=== PATIENT | male | born 1940 | race Caucasian/White ===

== ENCOUNTER 2022-05-08 11:03 | Emergency (ER) | payer MEDICARE, OTHER ==
[~2022-05-08] VITALS: Ht 182.9 cm; Wt 97.7 kg
[2022-05-08] VITALS (8 sets, daily range): BP systolic 138–154; BP diastolic 53–70
[~2022-05-08 11:03] MED LIST: BACLOFEN10 MG PO; BENAZEPRIL10 MG PO; METFORMIN500 MG PO; METOPROL TAR25 MG PO; SIMVASTATIN40 MG PO; ZOLPIDEM10 M1 PO
[2022-05-08 11:58] LABS: HEMATOCRIT 39.6 % (39.0-50.0); HEMOGLOBIN 13.8 g/dl (14.0-18.0); IMMATURE GRANULOCYTES 0.1 % (0.0-5.0); MEAN CELL VOLUME 89.2 fL CALC (80.0-100.0); MEAN CORPUSCULAR HGB 31.1 pG CALC (26.0-32.0); MEAN CORPUSCULAR HGB CONC 34.8 g/dL CAL (32.0-36.0); NEUT# 4.49 thou/uL (1.82-7.42); RED BLOOD COUNT 4.44 mill/uL (4.70-6.10); RED CELL DISTRI WIDTH 12.8 % (11.5-15.5)
[2022-05-08 12:07] LABS: ALBUMIN 4.1 g/dL (3.2-5.0); ALKALINE PHOSPHATASE 54 u/l (38-126); BILIRUBIN, TOTAL 0.8 mg/dL (0.0-1.4); BUN 19 mg/dL (8-23); BUN/CREATININE RATIO 22 (12-20 (CALC)); CARBON DIOXIDE 27 mmol/l (22-30); CHLORIDE 99 mmol/l (95-108); CREATININE 0.9 mg/dL (0.7-1.3); GFR FOR AFR.AMER. > 60 ML/MIN (>=60 (CALC)); GFR OTHER RACES > 60 ML/MIN (>=60 (CALC)); POTASSIUM 3.9 mmol/l (3.5-5.1); SGOT/AST 28 u/l (19-48); TOTAL PROTEIN 6.4 g/dL (6.3-8.2)
[2022-05-08 12:08] LABS: ANION GAP 15 (6-22 (CALC)); SODIUM 137 mmol/l (137-146)
[2022-05-08 12:19] LABS: MYOGLOBIN 53 ng/mL (0 - 121)
[2022-05-08 12:41] LABS: URINE BILIRUBIN - DIPSTICK NEGATIVE (NEGATIVE); URINE BLOOD DIPSTICK NEGATIVE (NEGATIVE); URINE COLOR YELLOW; URINE GLUCOSE - DIPSTICK NEGATIVE (NEGATIVE); URINE KETONE NEGATIVE (NEGATIVE); URINE LEUK ESTERASE NEGATIVE (NEGATIVE); URINE PH 7.5 (4.5-8.0); URINE PROTEIN - DIPSTICK TRACE mg/dL (NEG-TRACE); URINE SPECIFIC GRAVITY 1.015
[2022-05-08 12:42] LABS: URINE NITRITE - DIPSTICK NEGATIVE (Negative)
== END 2022-05-08 13:10 | disposition left against medical advice (07) ==
LOC: ED 11:03
PROVIDERS: Emergency Medicine
DX: R07.9 Chest pain, unspecified (principal); U07.1 COVID-19; I10 Essential (primary) hypertension; E11.9 Type 2 diabetes mellitus without complications; Z79.84 Long term (current) use of oral hypoglycemic drugs; Z91.19 Patient's noncompliance with other medical treatment and regimen

== ENCOUNTER 2024-08-18 15:11 | Emergency (ER) | payer MEDICARE, OTHER ==
[~2024-08-18] VITALS: Ht 182.9 cm; Wt 98.0 kg
[2024-08-18 15:50] VITALS: BP 134/59
[2024-08-18] MEDS ORDERED: ONDANSETRON HCl 4 MG/2 ML SDV IV ONE (16:05)
[2024-08-18] MEDS ORDERED: SODIUM CHLORIDE 0.9% 1,000 ML IV ONE (16:05)
[2024-08-18] MEDS ORDERED: methylPREDNISolone SODIUM SUCC 125 MG/2 ML SDV IV ONE (16:05)
[2024-08-18] MEDS ORDERED: IPRATROPIUM-Albuterol 0.5MG-2.5MG/3 ML NEB ONE (16:05)
[2024-08-18 16:26] LABS: URINE BILIRUBIN - DIPSTICK Negative (NEGATIVE); URINE BLOOD DIPSTICK Negative (NEGATIVE); URINE GLUCOSE - DIPSTICK Negative (NEGATIVE); URINE KETONE Negative (NEGATIVE); URINE LEUK ESTERASE Negative (NEGATIVE); URINE NITRITE - DIPSTICK Negative (Negative); URINE PH 6.5 (4.5-8.0); URINE PROTEIN - DIPSTICK 30 mg/dL (NEG-TRACE); URINE SPECIFIC GRAVITY 1.015; URINE UROBILINOGEN - DIPSTICK 0.2 E.U./dL (0.2)
[2024-08-18 16:27] LABS: URINE COLOR Yellow
[2024-08-18] MEDS ORDERED: KETOROLAC TROMETHAMINE 15 MG/ML SDV IV ONE (16:30)
[2024-08-18 16:33] LABS: URINE RBC 0-2 RBC/hpf (0-5); URINE SQUAMOUS EPITHELIAL CELL FEW EPI/hpf (0-FEW); URINE WBC 0-2 WBC/hpf (0-5)
[2024-08-18 16:34] LABS: BASO% 0.3 % (0-3); EOS% 0.2 % (0-8); HEMATOCRIT 42.4 % (39.0-50.0); HEMOGLOBIN 14.3 g/dl (14.0-18.0); IMMATURE GRANULOCYTES 0.3 % (0.0-5.0); LYMPH% 27.4 % (15-41); MEAN CELL VOLUME 91.4 fL CALC (80.0-100.0); MEAN CORPUSCULAR HGB 30.8 pG CALC (26.0-32.0); MEAN CORPUSCULAR HGB CONC 33.7 g/dL CAL (32.0-36.0); MONO% 13.8 % (2-13); NEUT# 3.69 thou/uL (1.82-7.42); RED BLOOD COUNT 4.64 mill/uL (4.70-6.10); RED CELL DISTRI WIDTH 12.9 % (11.5-15.5)
[2024-08-18 16:44] LABS: ALBUMIN 3.9 g/dL (3.2-5.0); BILIRUBIN, TOTAL 0.9 mg/dL (0.2-1.3); POTASSIUM 3.4 mmol/l (3.5-5.1); TOTAL PROTEIN 6.6 g/dL (6.3-8.2)
[2024-08-18] MEDS ORDERED: IPRATROPIUM-Albuterol 0.5MG-2.5MG/3 ML ONE (17:01)
[2024-08-18] MEDS ORDERED: OSELTAMIVIR PHOSPHATE 75 MG/TAB CAP PO ONE (17:10)
[2024-08-18 17:16] VITALS: BP 120/51
[2024-08-18] MEDS ORDERED: TAM75CAP PO (17:34)
[2024-08-18 17:45] VITALS: BP 125/59
[2024-08-18] MEDS ORDERED: ZOFRAN4 MG/TAB PO (18:06)
[2024-08-18 18:17] VITALS: BP 125/59
[2024-08-19] MEDS ORDERED: ZOFRAN4 MG/TAB PO (11:26)
[2024-08-19] MEDS ORDERED: TAM75CAP PO (11:26)
== END 2024-08-18 18:12 | disposition home or self-care (01) ==
LOC: ED 15:11
PROVIDERS: Nurse Practitioner
DX: J10.1 Influenza due to other identified influenza virus with other respiratory manifestations (principal); I10 Essential (primary) hypertension; E11.9 Type 2 diabetes mellitus without complications; Z79.84 Long term (current) use of oral hypoglycemic drugs; Z20.822 Contact with and (suspected) exposure to COVID-19
CPT/HCPCS: J1885; J2405